=== PATIENT | female | born 1965 ===

== ENCOUNTER 2018-03-24 08:05 | Emergency (ER) | payer OTHER ==
[2018-03-24 08:05] VITALS: BMI 28.7
[2018-03-24 08:35] VITALS: O2SAT 100
--- NOTE | 2018-03-24 09:14 | RAD ---
Date of service: 03/24/2018 PROCEDURE: Left Knee Radiographs. HISTORY: Pain. COMPARISON: None. FINDINGS: BONES: Normal. No fracture. JOINTS: Mild medial joint space narrowing. No articular erosion. Mild subchondral sclerosis. Lateral and patellofemoral compartments appear preserved. JOINT EFFUSION: Minimal OTHER FINDINGS: None. IMPRESSION: Mild medial osteoarthritis. Minimal joint effusion common nonspecific.
--- NOTE | 2018-03-24 09:20 | C.PDOC ---
History Of Present Illness 52yo female, presents to the emergency department with complaints of left knee pain, worsening over the past few day. Patient states pain is primarily in the knee, but sometimes radiates down the whole leg. States she takes Tramadol for pain, but it isn't helping. She denies nausea/vomiting, numbness/weakness, fever , chills, or any other associated symptoms. No other complaints at this time. Time Seen by Provider: 03/24/18 08:10 Chief Complaint (Nursing): Lower Extremity Problem/Injury History Per: Patient History/Exam Limitations: no limitations Current Symptoms Are (Timing): Still Present Severity: Moderate Past Medical History Reviewed: Historical Data, Nursing Documentation, Vital Signs Vital Signs: Last Vital Signs Temp 99.1 F 03/24/18 08:25 Pulse 87 03/24/18 08:25 Resp 16 03/24/18 08:25 BP 130/78 03/24/18 08:25 Pulse Ox 100 03/24/18 09:21 - Medical History PMH: Arthritis, Asthma (never hosp), Gall Bladder Disease, Rheumatoid Arthritis Surgical History: Cholecystectomy Family History: States: No Known Family Hx - Social History Hx Tobacco Use: No Hx Alcohol Use: No Hx Substance Use: No - Immunization History Hx Tetanus Toxoid Vaccination: No Hx Influenza Vaccination: No Hx Pneumococcal Vaccination: No Review Of Systems Constitutional: Negative for: Fever Gastrointestinal: Negative for: Vomiting Musculoskeletal: Positive for: Leg Pain (left knee) Neurological: Negative for: Weakness, Numbness Physical Exam - Physical Exam Appears: Non-toxic, No Acute Distress Skin: Normal Color, Warm, Dry, No Rash Head: Atraumatic Eye(s): bilateral: Normal Inspection Nose: Normal Oral Mucosa: Moist Lips: Normal Appearing Neck: Normal ROM Respiratory: No Accessory Muscle Use Extremity: Normal ROM, Tenderness (left anterior knee), No Deformity, No Swelling Neurological/Psych: Oriented x3, Normal Speech ED Course And Treatment O2 Sat by Pulse Oximetry: 100 Pulse Ox Interpretation: Normal (RA) Medical Decision Making Medical Decision Making: Plan: * Motrin * XR Knee * Doppler * Reassess and Disposition Disposition - Disposition Referrals: Nicolás Ortiz III, MD [Staff Provider] - Disposition: HOME/ ROUTINE Disposition Time: 11:34 Condition: STABLE Additional Instructions: follow up with orthopaedic within 2 days call to make an appointment take medications as prescribed return to eR if symptoms worsens or progress Prescriptions: Naproxen [Naprosyn] 500 mg PO BID PRN #16 tab PRN Reason: Pain, Moderate (4-7) Instructions: Knee Pain Forms: [facility] (Slovak), General Discharge Instructions, Work Excuse - Clinical Impression Clinical Impression: Knee pain - Scribe Statement The provider has reviewed the documentation as recorded by the Scribe (Eva Agee) All medical record entries made by the Scribe were at my direction and personally dictated by me. I have reviewed the chart and agree that the record accurately reflects my personal performance of the history, physical exam, medical decision making, and the department course for this patient. I have also personally directed, reviewed, and agree with the discharge instructions and disposition.
[2018-03-24 11:55] VITALS: BP 119/80; PULSE 68; RESP 18; TEMP 98.3
--- NOTE | 2018-03-24 12:50 | VASCLAB ---
Date of service: 03/24/2018 PROCEDURE: Left Lower Extremity Venous Duplex Exam. HISTORY: left leg pain swelling PRIORS: None. TECHNIQUE: Left common femoral, femoral, popliteal and posterior tibial, peroneal and great saphenous veins were evaluated. Flow was assessed with color Doppler, compressibility, assessment of phasic flow and augmentation response. Report prepared by Marcos Oakley, RVT FINDINGS: LEFT: 1. Common Femoral Vein: 1.1. Compressibility - Fully compressible: Thrombus - None : Flow - Phasic: Augmentation -Normal: Reflux - . 2. Femoral Vein: 2.1. Compressibility - Fully compressible: Thrombus - None: Flow - Phasic: Augmentation -Normal: Reflux - . 3. Popliteal Vein: 3.1. Compressibility - Fully compressible: Thrombus - None: Flow - Phasic: Augmentation -Normal: Reflux - . 4. Posterior Tibial Vein: 4.1. Compressibility - Fully compressible: Thrombus - None: Flow - : Augmentation -: Reflux - . 5. Peroneal Vein: 5.1. Compressibility - Fully compressible: Thrombus - None: Flow - : Augmentation -: Reflux - . 6. Great Saphenous Vein: 6.1. Compressibility - Fully compressible: Thrombus - None: Flow - Phasic: Augmentation - : Reflux - . OTHER FINDINGS: IMPRESSION: No evidence of deep or superficial vein thrombosis of the left lower extremity with excellent venous flow. Normal venous flow noted in the right common femoral vein.
== END 2018-03-24 11:55 | disposition home or self-care (01) ==
LOC: C.ER 08:05
DX: M25.562 Pain in left knee (principal)

== ENCOUNTER 2018-11-18 08:18 | Outpatient (CLI) | payer OTHER | END 2018-11-18 08:19 | disposition home or self-care (01) | LOC: C.LAB 08:18 | DX: M06.9 Rheumatoid arthritis, unspecified (principal); N39.0 Urinary tract infection, site not specified ==